=== PATIENT | male | born 1995 | race Caucasian/White ===

== ENCOUNTER 2016-11-25 15:04 | Emergency (ER) | payer OTHER ==
--- NOTE | ~2016-11-25 | CR63 ---
[facility] A Service of [facility] & [facility] RADIOLOGY TEXT RESULTS PATIENT: LEATHA GRUBER LOCATION: SED : [birth year] UNIT #: [id number] AGE: [address]: JUAN OLIVO PA-C SEX: M ORDER DR: [id number] [address] [address] [id number] E MR#: [id number] #: [id number] NAME: LEATHA GRUBER. : 1995 SEX: M STUDY DATE/TIME: 11/25/2016 15:24 UNIT: SED ROOM: STUDY DESCRIPTION: CR Chest 2 View Attending Physician: Juan Olivo Pa-C Ordering Physician: Physician Non-Staff Primary Care Physician: No Primary Care Physician MEDICAL IMAGING REPORT This report is preliminary unless electronic signature is present. EXAM PA and lateral chest INDICATIONS A 21-year-old male with cough for 2 weeks. No comparisons. FINDINGS The lungs are well expanded and clear. Heart size normal. Visualized osseous structures are unremarkable. IMPRESSION No active disease. Dictated by... Andrew Barrera M.D. THIS IS AN ELECTRONICALLY VERIFIED REPORT Andrew Barrera M.D. at 11/26/2016 10:01 AM YOSELIN/robb TD: 11/25/2016 21:22 JOB #: [id number] MEDICAL IMAGING REPORT Page 1 of 1
[~2016-11-25 15:04] MED LIST: AMOXICILLIN PO; FIORICET1 TAB PO; NO MEDICATIONS; NORCO 5/325 TAB1 TAB PO; PHENERGAN PO; ZOFRAN ODT4 MG/UDTAB PO
== END 2016-11-25 17:12 | disposition home or self-care (01) ==
LOC: SED 15:04
DX: R05 Cough (principal); F17.210 Nicotine dependence, cigarettes, uncomplicated; Z79.899 Other long term (current) drug therapy
CPT/HCPCS: 71020; 94640; 99284

== ENCOUNTER 2017-02-13 09:51 | Emergency (ER) | payer OTHER | END 2017-02-13 11:01 | disposition home or self-care (01) | LOC: SED 09:51 | DX: B02.9 Zoster without complications (principal) | CPT/HCPCS: 99282 ==